=== PATIENT | female | born 1985 | race African-American/Black ===

== ENCOUNTER 2017-03-23 11:27 | Emergency (ER) | payer BC ==
--- NOTE | ~2017-03-23 | CR63 ---
[facility] A Service of [facility] & [facility] RADIOLOGY TEXT RESULTS PATIENT: LORENA ROSARIO LOCATION: [facility] : [birth year] UNIT #: [id number] AGE: [address]: KITTY RAHMAN SEX: F ORDER DR: [id number] [facility] [address] [place], [place] [address] [id number] E MR#: [id number] Acc #: [id number] NAME: LORENA ROSARIO. : 1985 SEX: F STUDY DATE/TIME: 03/23/2017 12:03 UNIT: [facility] ROOM: STUDY DESCRIPTION: CR Chest 2 View Attending Physician: Kitty Rahman A.P.R.N. Ordering Physician: Kitty Rahman A.P.R.N. MEDICAL IMAGING REPORT This report is preliminary unless electronic signature is present EXAM PA and lateral chest HISTORY Chest neck pain 2 days. Cough. FINDINGS 2 views of the chest demonstrate cardiac size and pulmonary vascularity are normal. Mild left lower thoracic curve. No infiltrates or effusions. IMPRESSION No acute findings. Dictated by... London Sandoval M.D. THIS IS AN ELECTRONICALLY VERIFIED REPORT London Sandoval M.D. at 03/23/2017 10:47 PM DFL/pcl TD: 03/23/2017 14:07 JOB #: [id number] MEDICAL IMAGING REPORT Page 1 of 1 COPY
== END 2017-03-23 13:50 | disposition home or self-care (01) ==
LOC: CFTX 11:27 → CED 11:27 → CFTX 12:25
DX: M94.0 Chondrocostal junction syndrome [Tietze] (principal); J30.9 Allergic rhinitis, unspecified; F17.200 Nicotine dependence, unspecified, uncomplicated
CPT/HCPCS: 71020; 84703; 99285

== ENCOUNTER 2017-04-15 22:56 | Emergency (ER) | payer BC ==
--- NOTE | ~2017-04-15 | CT4 ---
[facility] A Service [facility] RADIOLOGY TEXT RESULTS PATIENT: LORENA ROSARIO LOCATION: [facility] : 87 UNIT #: [id number] AGE: [address]: Lobito Harp MD SEX: F ORDER DR: [id number] [address] [place], [place] [address] [id number] E MR#: [id number] Acc #: [id number] NAME: LORENA ROSARIO : 1985 SEX: F STUDY DATE/TIME: 04/16/2017 2:30 UNIT: [facility] ROOM: STUDY DESCRIPTION: CT Abd and Pelv Wo Cont Attending Physician: Lobito Harp M.D. Ordering Physician: Lobito Harp M.D. Primary Care Physician: No Primary Care Physician MEDICAL IMAGING REPORT This report is preliminary unless electronic signature is present EXAM CT abdomen and pelvis without contrast. HISTORY Left-sided cramping, burning on urination for 2 days. COMPARISON 02/27/2016 TECHNIQUE Axial 3 mm images were obtained through the abdomen and pelvis without IV or oral contrast. This CT exam was performed with one or more of the following radiation dose reduction techniques: automatic exposure control, adjustment of mA and/or kV according to patient size, and iterative reconstruction. FINDINGS Lung bases are clear. The liver, spleen, pancreas, gallbladder and adrenal glands are normal. The right kidney is hypertrophied and the left kidney is markedly atrophic and replaced with small cysts. The aorta is normal in size and there is no adenopathy. The bowel including the appendix appears normal. The uterus and adnexal regions and the bladder are normal. The bones are unremarkable. IMPRESSION 1. Atrophic left kidney with right renal hypertrophy. 2. Normal appendix. 3. Otherwise normal. [facility] A Service of [facility] RADIOLOGY TEXT RESULTS PATIENT: LORENA ROSARIO LOCATION: [facility] : 87 UNIT #: [id number] AGE: [address]: Lobito Harp MD SEX: F ORDER DR: Dictated by... Huseyin Saunders M.D. THIS IS AN ELECTRONICALLY VERIFIED REPORT Huseyin Saunders M.D. at 04/16/2017 9:09 PM RODNEY/julian TD: 04/16/2017 13:42 JOB #: [id number] MEDICAL IMAGING REPORT Page 1 of 1 COPY
[2017-04-16 00:47] LABS: URINE SOURCE CLEAN CATCH
[2017-04-16 00:55] LABS: URINE APPEARANCE CLEAR; URINE BILIRUBIN NEG (NEG); URINE BLOOD NEG (NEG); URINE COLOR YELLOW; URINE GLUCOSE NEG (NEG); URINE KETONE NEG (NEG); URINE LEUKOCYTE ESTERASE TRACE (NEG); URINE NITRATE NEG (NEG); URINE PROTEIN NEG (NEG); URINE SPECIFIC GRAVITY 1.035 (1.003-1.035)
[2017-04-16 00:58] LABS: CULTURE INDICATED? YES; URINE BACTERIA AUWI 2+ (NEGATIVE); URINE SQUAMOUS EPITHELIAL CELL MOD /[HPF]
== END 2017-04-16 03:20 | disposition home or self-care (01) ==
LOC: CED 22:56
PROVIDERS: Student in an Organized Health Care Education/Training Program
DX: N39.0 Urinary tract infection, site not specified (principal); F17.200 Nicotine dependence, unspecified, uncomplicated
CPT/HCPCS: 74176; 81003; 84703; 87086; 99284

== ENCOUNTER 2017-04-21 20:29 | Emergency (ER) | payer BC ==
[~2017-04-21] VITALS: Ht 160 cm; Wt 74.8 kg
== END 2017-04-21 23:46 | disposition home or self-care (01) ==
LOC: CED 20:29
DX: R19.7 Diarrhea, unspecified (principal); R10.9 Unspecified abdominal pain; F17.200 Nicotine dependence, unspecified, uncomplicated
CPT/HCPCS: 99284

== ENCOUNTER 2017-05-11 11:14 | Emergency (ER) | payer BC ==
[~2017-05-11] VITALS: Ht 162.6 cm; Wt 76.2 kg
--- NOTE | ~2017-05-11 | CR181 ---
[facility] A Service of [facility] & [facility] RADIOLOGY TEXT RESULTS PATIENT: LORENA ROSARIO LOCATION: [facility] : 87 UNIT #: [id number] AGE: [address]: Jo Pickard APRN SEX: F ORDER DR: [id number] [facility] [address] [place], [place] [address] [id number] E MR#: [id number] Acc #: [id number] NAME: LORENA ROSARIO. : 1985 SEX: F STUDY DATE/TIME: 05/11/2017 12:09 UNIT: [facility] ROOM: STUDY DESCRIPTION: CR Lumbar Spine 2 or 3 Views Attending Physician: Jo Pickard A.P.R.N. Ordering Physician: Varun Prieto M.D. Primary Care Physician: Primary Care Physician No MEDICAL IMAGING REPORT This report is preliminary unless electronic signature is present EXAM Lumbar spine 3 view series HISTORY Low back pain for 3 weeks. FINDINGS AP and lateral projections of the lumbar segment show good mineralization of both anterior and posterior elements. They are all anatomically normal without indication of fracture, dislocation, or malignant change of a sclerotic or lytic type. There is no congenital defect noted. The sacroiliac joints are normal. IMPRESSION Normal lumbar spine. Dictated by... Huseyin Saunders M.D. THIS IS AN ELECTRONICALLY VERIFIED REPORT Huseyin Saunders M.D. at 05/12/2017 10:45 AM RODNEY/jacobo TD: 05/11/2017 15:18 JOB #: [id number] MEDICAL IMAGING REPORT Page 1 of 1 COPY
--- NOTE | ~2017-05-11 | CR243 ---
[facility] A Service of [facility] RADIOLOGY TEXT RESULTS PATIENT: LORENA ROSARIO LOCATION: [facility] : 87 UNIT #: [id number] AGE: [address]: Jo Pickard APRN SEX: F ORDER DR: [id number] [facility] [address] [place], [place] [address] [id number] E MR#: [id number] Acc #: [id number] NAME: LORENA ROSARIO. : 1985 SEX: F STUDY DATE/TIME: 05/11/2017 12:08 UNIT: [facility] ROOM: STUDY DESCRIPTION: CR Thoracic Spine 3 Views Attending Physician: Jo Pickard A.P.R.N. Ordering Physician: Varun Prieto M.D. Primary Care Physician: Primary Care Physician No MEDICAL IMAGING REPORT This report is preliminary unless electronic signature is present EXAM Thoracic spine series INDICATION Thoracic spine pain for 3 weeks. FINDINGS AP and lateral examination of the dorsal segment shows normal mineralization and a satisfactory anatomical dorsal kyphosis. All body heights, interspaces, and posterior elements are normal anatomically without any indication of malignancy, trauma, unusual paraspinal soft tissue density mass, or congenital defect. IMPRESSION Normal thoracic spine. Dictated by... Huseyin Saunders M.D. THIS IS AN ELECTRONICALLY VERIFIED REPORT Huseyin Saunders M.D. at 05/12/2017 10:45 AM RODNEY/jacobo TD: 05/11/2017 15:17 JOB #: [id number] MEDICAL IMAGING REPORT Page 1 of 1 COPY
== END 2017-05-11 13:00 | disposition home or self-care (01) ==
LOC: CED 11:14 → CFTX 11:14
DX: M54.2 Cervicalgia (principal); M54.6 Pain in thoracic spine; F32.9 Major depressive disorder, single episode, unspecified; F41.9 Anxiety disorder, unspecified; F17.200 Nicotine dependence, unspecified, uncomplicated; Z98.51 Tubal ligation status
CPT/HCPCS: 72072; 72100; 99283

== ENCOUNTER 2017-05-20 20:48 | Emergency (ER) | payer BC ==
[~2017-05-20] VITALS: Ht 160 cm; Wt 79.8 kg
== END 2017-05-20 22:33 | disposition home or self-care (01) ==
LOC: CFTX 20:48 → CED 20:48 → CFTX 22:31
DX: J06.9 Acute upper respiratory infection, unspecified (principal)
CPT/HCPCS: 87651; 99283